=== PATIENT | female | born 1935 | race Caucasian/White ===

== ENCOUNTER 2016-05-16 13:19 | Outpatient (CLI) | payer MEDICARE, BC ==
[~2016-05-16] VITALS: Ht 157.5 cm; Wt 52.3 kg
[~2016-05-16 13:19] MED LIST: ADVAIR 250/501 DISK INH; BAYER CHEWABLE81 MG PO; CALTRATE 600 M600 M1 PO; FISH OIL 1,0001 CA1 PO; FOSAMAX 70 MG T70 MG PO; KLONOPIN0.5 MG PO; LEVOXYL100 MCG PO; PRAVACHOL20 MG PO; SORINE80 MG PO; SYNTHROID75 MCG PO; TYLENOL PM1 TAB PO
[2016-05-16 13:51] VITALS: BP 126/69; Ht 157.5 cm; Wt 52.3 kg
== END 2016-05-16 14:00 | disposition home or self-care (01) ==
LOC: D.OPS 13:19
DX: M81.0 Age-related osteoporosis without current pathological fracture (principal)

== ENCOUNTER 2016-11-19 12:35 | Outpatient (CLI) | payer MEDICARE, BC ==
[2016-11-19 13:01] VITALS: BP 156/75; BMI 21.2
== END 2016-11-19 13:39 | disposition home or self-care (01) ==
LOC: D.OPS 12:35
DX: M81.0 Age-related osteoporosis without current pathological fracture (principal)

== ENCOUNTER → 2017-05-09 14:43 | Outpatient (CLI) | payer MEDICARE, BC | END | disposition home or self-care (01) | LOC: D.RAD 14:30 | DX: Z48.815 Encounter for surgical aftercare following surgery on the digestive system (principal) ==

== ENCOUNTER 2017-06-03 11:35 | Outpatient (CLI) | payer MEDICARE, BC ==
[~2017-06-03] VITALS: Ht 157.5 cm; Wt 54.1 kg
[2017-06-03 12:13] VITALS: Ht 157.5 cm; Wt 54.1 kg
== END 2017-06-03 12:27 | disposition home or self-care (01) ==
LOC: D.OPS 11:35
DX: M81.0 Age-related osteoporosis without current pathological fracture (principal)

== ENCOUNTER → 2017-10-01 14:27 | Outpatient (CLI) | payer MEDICARE, BC ==
[2017-06-03 12:13] VITALS: BMI 21.8
== END | disposition home or self-care (01) ==
LOC: D.MRI 14:27
DX: M54.31 Sciatica, right side (principal)

== ENCOUNTER → 2017-10-10 21:16 | Outpatient (CLI) | payer MEDICARE, BC ==
[2017-06-03 12:13] VITALS: BMI 21.8
== END | disposition home or self-care (01) ==
LOC: D.MAMMO 14:45
DX: Z12.31 Encounter for screening mammogram for malignant neoplasm of breast (principal)

== ENCOUNTER → 2018-03-26 11:37 | Outpatient (CLI) | payer MEDICARE, BC ==
[2017-06-03 12:13] VITALS: BMI 21.8
[2018-03-26 12:23] LABS: HEMOGLOBIN 13.5 g/dL (12-16); LYMPHOCYTES 35.5 % (15-50); MCH 28.9 pg (26.0-34.0); MCHC 32.9 g/dL (31.0-37.0); MCV 87.8 fL (80.0-100.0); MEAN PLATELET VOLUME 10.1 fL (7.4-10.4); NEUTROPHILS 56.1 % (40-80); RBC 4.67 10x6/uL (4.00-5.40); RDW 12.9 % (11.5-14.5); WBC 7.9 10x3/uL (4.8-10.8)
[2018-03-26 12:24] LABS: PLATELET COUNT 296 10x3/uL (130-400)
[2018-03-26 12:36] LABS: ANION GAP 12.5 mmol/L (8-16); CALCIUM 9.6 mg/dL (8.5-10.1); CARBON DIOXIDE 31.7 mmol/L (21.0-32.0); CREATININE - SERUM 0.8 mg/dL (0.6-1.3); POTASSIUM - SERUM 4.2 mmol/L (3.5-5.1)
[2018-03-26 14:00] LABS: INR 0.97 (0.85-1.17); PROTIME 12.8 SECONDS (11.6-15.0)
== END | disposition home or self-care (01) ==
LOC: D.LAB 11:37
PROVIDERS: Specialist
DX: Z01.812 Encounter for preprocedural laboratory examination (principal); I10 Essential (primary) hypertension; T14.90XA Injury, unspecified, initial encounter; Z51.81 Encounter for therapeutic drug level monitoring; Z79.1 Long term (current) use of non-steroidal anti-inflammatories (NSAID); Z79.01 Long term (current) use of anticoagulants; X58.XXXA Exposure to other specified factors, initial encounter

== ENCOUNTER → 2018-04-22 11:17 | Outpatient (CLI) | payer MEDICARE, BC ==
[2017-06-03 12:13] VITALS: BMI 21.8
[2018-04-22 12:28] LABS: BASOPHILS 0.3 % (0-2); EOSINOPHILS 2.6 % (0-7); HEMATOCRIT 38.4 % (36.0-48.0); HEMOGLOBIN 12.4 g/dL (12-16); IMMATURE GRANULOCYTES 0.3 % (0-5); LYMPHOCYTES 25.4 % (15-50); MCHC 32.3 g/dL (31.0-37.0); MCV 89.7 fL (80.0-100.0); MEAN PLATELET VOLUME 10.6 fL (7.4-10.4); MONOCYTES 5.3 % (2-11); NEUTROPHILS 66.1 % (40-80); RBC 4.28 10x6/uL (4.00-5.40); RDW 13.5 % (11.5-14.5); WBC 11.4 10x3/uL (4.8-10.8)
[2018-04-22 12:33] LABS: PLATELET COUNT 428 10x3/uL (130-400)
[2018-04-22 14:57] LABS: ERYTHROCYTE SEDIMENTATION RATE 10 mm/hr (0-30)
== END | disposition home or self-care (01) ==
LOC: D.LAB 11:17
PROVIDERS: ATTEND Specialist
DX: Z48.812 Encounter for surgical aftercare following surgery on the circulatory system (principal); T14.90XA Injury, unspecified, initial encounter

== ENCOUNTER → 2019-04-28 11:25 | Outpatient (CLI) | payer MEDICARE, BC ==
[2017-06-03 12:13] VITALS: BMI 21.8
== END | disposition home or self-care (01) ==
LOC: D.RAD 11:25
PROVIDERS: ATTEND Allergy & Immunology
DX: J32.0 Chronic maxillary sinusitis (principal)

== ENCOUNTER → 2020-08-01 10:18 | Outpatient (CLI) | payer MEDICARE, BC ==
[2017-06-03 12:13] VITALS: BMI 21.8
== END | disposition home or self-care (01) ==
LOC: D.US 10:18
PROVIDERS: ATTEND Nurse Practitioner Family
DX: R42 Dizziness and giddiness (principal)

== ENCOUNTER → 2020-08-10 08:28 | Outpatient (CLI) | payer MEDICARE, BC ==
[2017-06-03 12:13] VITALS: BMI 21.8
== END | disposition home or self-care (01) ==
LOC: D.CT 08:28
PROVIDERS: ATTEND Nurse Practitioner Family
DX: I65.21 Occlusion and stenosis of right carotid artery (principal)